=== PATIENT | female | born 1935 | race Caucasian/White ===

== ENCOUNTER 2016-07-23 11:04 | Outpatient (CLI) | payer MEDICARE, OTHER ==
[2016-04-30 19:55] VITALS: BP 150/68
[2016-07-23 11:48] LABS: eGFR (African) > 60; eGFR (Non-African) > 60
== END 2016-07-23 11:05 ==
LOC: LAB 11:04
PROVIDERS: ATTEND Family Medicine
DX: E03.9 Hypothyroidism, unspecified (principal); I10 Essential (primary) hypertension
CPT/HCPCS: 36415; 80053; 84443

== ENCOUNTER 2016-08-31 15:59 | Outpatient (CLI) | payer MEDICARE, OTHER ==
[2016-04-30 19:55] VITALS: BP 150/68
== END 2016-08-31 16:00 ==
LOC: LABRHC 15:59
PROVIDERS: ATTEND Family Medicine
DX: Z51.81 Encounter for therapeutic drug level monitoring (principal); Z79.01 Long term (current) use of anticoagulants; I48.91 Unspecified atrial fibrillation
CPT/HCPCS: 85610

== ENCOUNTER 2016-09-06 11:11 | Outpatient (CLI) | payer MEDICARE, OTHER ==
[2016-04-30 19:55] VITALS: BP 150/68
== END 2016-09-06 11:12 ==
LOC: LAB 11:11
PROVIDERS: ATTEND Family Medicine
DX: E03.9 Hypothyroidism, unspecified (principal); I48.91 Unspecified atrial fibrillation
CPT/HCPCS: 36415; 84443; 85610

== ENCOUNTER 2016-10-30 14:18 | Outpatient (CLI) | payer MEDICARE, OTHER ==
[2016-04-30 19:55] VITALS: BP 150/68
== END 2016-10-30 14:20 ==
LOC: LAB 14:18
PROVIDERS: ATTEND Family Medicine
DX: I48.91 Unspecified atrial fibrillation (principal); Z79.01 Long term (current) use of anticoagulants
CPT/HCPCS: 36415; 85610

== ENCOUNTER 2016-11-13 10:37 | Outpatient (CLI) | payer MEDICARE, OTHER ==
[2016-04-30 19:55] VITALS: BP 150/68
== END 2016-11-13 10:40 ==
LOC: CARD 10:37
PROVIDERS: ATTEND Internal Medicine Cardiovascular Disease
DX: I50.9 Heart failure, unspecified (principal)
CPT/HCPCS: G0463

== ENCOUNTER 2016-11-13 11:58 | Outpatient (CLI) | payer MEDICARE, OTHER ==
[2016-04-30 19:55] VITALS: BP 150/68
== END 2016-11-13 12:00 ==
LOC: LAB 11:58
PROVIDERS: ATTEND Family Medicine
DX: I48.91 Unspecified atrial fibrillation (principal)
CPT/HCPCS: 36415; 85610

== ENCOUNTER 2017-01-01 12:20 | Outpatient (CLI) | payer MEDICARE, OTHER ==
[2016-04-30 19:55] VITALS: BP 150/68
== END 2017-01-01 12:23 ==
LOC: CARD 12:20
PROVIDERS: ATTEND Internal Medicine Cardiovascular Disease
DX: R06.00 Dyspnea, unspecified (principal); I48.91 Unspecified atrial fibrillation; I10 Essential (primary) hypertension
CPT/HCPCS: G0463

== ENCOUNTER 2017-01-08 12:41 | Outpatient (CLI) | payer MEDICARE, OTHER ==
[2016-04-30 19:55] VITALS: BP 150/68
[2017-01-08 13:29] LABS: eGFR (African) > 60; eGFR (Non-African) > 60
== END 2017-01-08 12:42 ==
LOC: LAB 12:41
PROVIDERS: ATTEND Family Medicine
DX: I48.91 Unspecified atrial fibrillation (principal)
CPT/HCPCS: 36415; 80048; 85610

== ENCOUNTER 2017-05-01 12:25 | Outpatient (CLI) | payer MEDICARE, OTHER ==
[2016-04-30 19:55] VITALS: BP 150/68
--- NOTE | 2017-05-01 13:41 | Diagnostic Imaging Report ---
BISMARK LEHMAN [facility] [id number] [facility] [address] [address] Report Submission Date: May 01, 2017 1:00:57 PM UPHOLSTERY TECHNICIAN Patient Study Name: CRYSTAL HERNANDEZ Date: May 01, 2017 12:37:41 PM UPHOLSTERY TECHNICIAN Modality Type: CR Gender: F Description: SPINE : 35 Institution: [facility] Physician: BISMARK LEHMAN Examination: Cervical spine History: Discomfort. Comparison exams: None available Findings: 4 views of the cervical spine demonstrate normal height and alignment. No anterior compression. No abnormal listhesis. Scattered osteophytes. No odontoid abnormality. No prevertebral abnormality. Impression: Degenerative changes. No acute osseous abnormality. Electronically signed on May 01, 2017 1:00:57 PM UPHOLSTERY TECHNICIAN by: Alvaro YANG
== END 2017-05-01 12:26 ==
LOC: RAD 12:25
PROVIDERS: ATTEND Family Medicine
DX: M54.2 Cervicalgia (principal)
CPT/HCPCS: 72040

== ENCOUNTER 2017-10-01 12:05 | Outpatient (CLI) | payer MEDICARE, OTHER ==
[2016-04-30 19:55] VITALS: BP 150/68
== END 2017-10-01 12:06 ==
LOC: CARD 12:05
PROVIDERS: ATTEND Internal Medicine Cardiovascular Disease
DX: I50.9 Heart failure, unspecified (principal); R07.9 Chest pain, unspecified; I48.91 Unspecified atrial fibrillation; I10 Essential (primary) hypertension
CPT/HCPCS: G0463

== ENCOUNTER 2017-11-06 14:42 | Outpatient (CLI) | payer MEDICARE, OTHER ==
[2016-04-30 19:55] VITALS: BP 150/68
--- NOTE | 2017-11-07 09:18 | OP Clinic Progress Note ---
REASON FOR VISIT: This 82-year-old who has been on Coumadin has had left-sided epistaxis. For about a range of a year, she feels that she has had postnasal drainage, some rhinitis, stuffy nose and congestion. She has tried a variety of different antihistamines by her history. She had 3 episodes of epistaxis on the left side. The nasal septum is left side deviated. There is some dry scabby, crusty areas on the anterior portion of the septum. I do not see 1 single large blood vessel but there is hyperemia there. As there is no clear identifiable active bleeding site, I have not cauterized anything today. Alternatively, I have shown her how to place antibiotic ointment impregnated small portion of cotton in the left nostril and practiced with her to do this with fingers and tweezers. She seemed to be fairly adept at this. I have asked her to do this a couple of hours a day for the next month. PLAN: Clinically, it appears to be an anterior rhinitis with increased vascularity. She may resume the Coumadin after several days if we can cut down on the inflammatory reaction in the anterior part of the septum on that left side. She can come back in the interval but, otherwise, I will see her in about a month. We practiced having her keep the antibiotic impregnated cotton in the anterior portion of the left nostril. I believe she is fairly adept at this. cc: Dr. Alvin YANG
== END 2017-11-06 14:43 ==
LOC: ENT 14:42 → SUATTDRO 14:42 → ENT 14:43
PROVIDERS: ATTEND Family Medicine
DX: R04.0 Epistaxis (principal)
CPT/HCPCS: G0463

== ENCOUNTER 2017-12-11 14:12 | Outpatient (CLI) | payer MEDICARE, OTHER ==
[2016-04-30 19:55] VITALS: BP 150/68
--- NOTE | 2017-12-11 15:51 | OP Clinic Progress Note ---
REASON FOR VISIT: This 82-year-old lady has had left-sided epistaxis. It was treated last time with showing her how to keep simple [id number] antibiotic ointment up in the left nostril with a cotton ball. She has done, I believe, a fairly good job of that. Using a fiberoptic rhinoscope, there is markedly decreased vascularity, more in the left side where the septum is very slightly left-sided deviated anteriorly. She was changed from Coumadin over to a different anticoagulant. PLAN: I encouraged her to decrease the frequency of keeping antibiotic ointment with a little cotton ball in it. It may be of benefit for her to simply once a week to put a cotton ball with some [id number] antibiotic ointment on it in the left side for about an hour a week. I reviewed this with her. At least for the time being, she feels that she can be compliant. I pointed out that in the winter it will be bone drier and she should pay a little more attention to keeping a little antibiotic ointment up in the nostrils during that time. cc: Dr. Alvin YANG
== END 2017-12-11 14:13 ==
LOC: ENT 14:12
PROVIDERS: ATTEND Otolaryngology
DX: R04.0 Epistaxis (principal)
CPT/HCPCS: G0463

== ENCOUNTER 2018-01-28 11:14 | Outpatient (CLI) | payer MEDICARE, OTHER ==
[2016-04-30 19:55] VITALS: BP 150/68
[2018-01-28 15:48] LABS: eGFR (African) > 60; eGFR (Non-African) > 60
== END 2018-01-28 11:15 ==
LOC: CARD 11:14
PROVIDERS: ATTEND Internal Medicine Cardiovascular Disease
DX: I48.0 Paroxysmal atrial fibrillation (principal); I50.9 Heart failure, unspecified; I48.91 Unspecified atrial fibrillation; I27.0 Primary pulmonary hypertension; I10 Essential (primary) hypertension
CPT/HCPCS: 36415; 80048; G0463